=== PATIENT | male | born 1985 | race Caucasian/White ===

== ENCOUNTER 2025-05-13 08:35 | Emergency (ER) | payer BC ==
[~2025-05-13] VITALS: Ht 172.7 cm; Wt 76.0 kg
[2025-05-13 08:37] VITALS: O2SAT 98
[2025-05-13 09:41] LABS: BASOPHILS % 1.3 % (0.0-2.0); EOSINOPHILS % 0.6 % (0.0-5.0); HEMATOCRIT. 44.0 % (42.0-52.0); HEMOGLOBIN. 15.2 g/dL (14.0-18.0); LYMPHOCYTES % 26.6 % (20.0-50.0); MEAN PLATELET VOLUME 8.3 fl (7.4-10.4); MONOCYTES % 10.1 % (2.0-8.0); NEUTROPHILS % 61.4 % (40.0-76.0); PLATELET 325 x1000/uL (130-400); RED BLOOD CELL COUNT 5.01 mill/uL (4.7-6.1); RED CELL DISTRIBUTION WIDTH 12.8 % (11.6-14.6)
[2025-05-13 10:01] LABS: CREATININE 1.4 mg/dL (0.6-1.3); UREA NITROGEN BLOOD 14 mg/dL (9-23)
[2025-05-13 10:02] LABS: ETHANOL BLOOD < 10 mg/dL (<10)
[2025-05-13] MEDS: OLANZAPINE 5MG TABLET ODT PO ONE (12:09)
[2025-05-13] MEDS: ARIPIPRAZOLE 5MG TABLET PO SCH (13:00)
[2025-05-13] MEDS: ZOLPIDEM TARTRATE 5MG TABLET PO ONE (13:15)
[2025-05-13 14:37] LABS: CLARITY URINE CLEAR (CLEAR); COLOR URINE YELLOW (YELLOW); GLUCOSE URINE NEGATIVE (NEGATIVE); KETONES URINE TRACE (NEGATIVE); LEUKOCYTE ESTERASE URINE NEGATIVE (NEGATIVE); NITRITE URINE NEGATIVE (NEGATIVE); OCCULT BLOOD URINE NEGATIVE (NEGATIVE); PH URINE 5.5 (4.5-8.0); PROTEIN URINE NEGATIVE (NEGATIVE); SPECIFIC GRAVITY URINE 1.024 (1.005-1.030); UROBILINOGEN URINE 0.2 E.U./dL (0.2-1.0)
[2025-05-13 14:49] LABS: *AMPHETAMINES SCREEN URINE NEGATIVE (NEGATIVE)
[2025-05-13 14:50] LABS: *BARBITURATES SCREEN URINE NEGATIVE (NEGATIVE); *BENZODIAZEPINES SCREEN URINE NEGATIVE (NEGATIVE); *COCAINE SCREEN URINE NEGATIVE (NEGATIVE); CANNABINOID URINE SCREEN PRESUMPTIVE POSITIVE (NEGATIVE); ECSTASY MDMA SCREEN URINE CONF.TEST INDICATED (NEGATIVE); METHADONE URINE SCREEN NEGATIVE (NEGATIVE); OPIATES URINE SCREEN NEGATIVE (NEGATIVE); PHENCYCLIDINE URINE SCREEN NEGATIVE (NEGATIVE)
[2025-05-13] MEDS: TRAZODONE HCL 50MG TABLET PO SCH (21:15)
[2025-05-14 13:50] VITALS: BP 129/88; PULSE 82; RESP 16; TEMP 36.3; O2SAT 98
== END 2025-05-14 13:51 ==
LOC: ER 08:35
DX: R44.0 Auditory hallucinations (principal); F19.10 Other psychoactive substance abuse, uncomplicated; Z79.899 Other long term (current) drug therapy; Z20.822 Contact with and (suspected) exposure to COVID-19
CPT/HCPCS: 36415; 80048; 80305; 80307; 80320; 80329; 81003; 85025; 87426; 99285; G0480